=== PATIENT | female | born 1985 | race Caucasian/White ===

== ENCOUNTER 2017-02-21 18:06 | Emergency (ER) | payer OTHER ==
--- NOTE | 2017-02-21 20:42 | ED Physician Documentation ---
PD HPI HEENT - Stated complaint Stated Complaint: BUMP IN NOSE - Chief complaint Chief Complaint: Heent - History obtained from History obtained from: Patient, Family - History of Present Illness Timing - onset: How many days ago (3) Timing - details: Gradual onset, Still present Location: Nose Associated symptoms: No: Fever, Congestion Similar symptoms before: Has not had sx before Recently seen: Not recently seen - Additional information Additional information: Patient is a 31 year old female with no significant past medical history who is presenting to the emergency department for pain and swelling on the inside of her nose. Patient states that it started on her right nare, but now patient states that it is on both sides. Patient states her father pulled out some of her nose hairs, thinking that it might help, but the pain has persisted. Patient denies any trauma or systemic symptoms. Review of Systems Constitutional: denies: Fever, Chills Eyes: reports: Reviewed and negative Ears: reports: Reviewed and negative Nose: denies: Rhinorrhea / runny nose, Congestion, Foreign Body Throat: denies: Sore throat Cardiac: reports: Reviewed and negative Respiratory: reports: Reviewed and negative GI: reports: Reviewed and negative : reports: Reviewed and negative Skin: reports: Lesions Musculoskeletal: reports: Reviewed and negative Neurologic: denies: Headache Immunocompromised: denies: Immunocompromised PD PAST MEDICAL HISTORY - Past Medical History Derm: Other Other Past Medical History: Hx of Hives QD r/t Skin condition. 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 HEENT: Tonsil/Adenoidectomy - Present Medications Home Medications: Ambulatory Orders Medication Instructions Recorded Confirmed No Known Home Medications [No 02/21/17 02/21/17 Known Home Medications] - Allergies Allergies/Adverse Reactions: Allergies Allergy/AdvReac Type Severity Reaction Status Date / Time morphine Allergy Unknown Verified 02/21/17 18:17 - Social History Does the pt smoke?: No Smoking Status: Never smoker Does the pt drink ETOH?: Yes Does the pt have substance abuse?: No - Immunizations Immunizations are current?: No Immunizations: TDAP current <10years PD ED PE NORMAL - Vitals Vital signs reviewed: Yes - General General: Alert and oriented X 3, Well developed/nourished - HEENT HEENT: Atraumatic, PERRL, Moist mucous membranes, Pharynx benign, Dentition benign - Neck Neck: Supple, no meningeal sign - Cardiac Cardiac: RRR, No murmur - Respiratory Respiratory: No respiratory distress - Abdomen Abdomen: Non distended - Derm Derm: Warm and dry - Extremities Extremities: No deformity - Neuro Neuro: Alert and oriented X 3, No motor deficit, No sensory deficit, Normal speech Eye Opening: Spontaneous Motor: Obeys Commands Verbal: Oriented GCS Score: 15 - Psych Psych: Normal mood PD ED PE EXPANDED - General General: Anxious - HEENT HEENT: Atraumatic, Other (mild tenderness, erythema and swelling of medial portion of right nare, no drainable fluid collection) Results - Vitals Vitals: Vital Signs - 24 hr 02/21/17 02/21/17 02/21/17 18:12 19:53 20:45 Temperature 36.5 C 36.4 C L Heart Rate 74 68 68 Respiratory 16 16 18 Rate Blood Pressure 121/84 H 119/80 143/81 H O2 Saturation 100 97 97 Oxygen O2 Source Room air PD MEDICAL DECISION MAKING - ED course Complexity details: reviewed old records, re-evaluated patient, considered differential, d/w patient, d/w family ED course: Patient was seen and examined at bedside. Patient was well appearing and in no acute distress. Patient required no diagnostics or testing and was given bacitracin. Patient required no further work up and was stable for discharge with outpatient follow up. Departure - Departure Disposition: 01 Home, Self Care Clinical Impression: Folliculitis Condition: Good Instructions: ED Folliculitis Follow-Up: primary,care provider [Other] - As Needed Comments: Your symptoms are being caused by a blocked follicle. You will need to apply warm compresses to the area at least 4 times a day. You should also apply topical antibiotic 4 times a day as well. You can take motrin or tylenol as needed for pain. You should follow up with your pmd as needed. You may return to the emergency department at any time for new, worsening or uncontrollable symptoms. Discharge Date/Time: 02/21/17 20:58
[2017-02-21 20:45] VITALS: BP 143/81
== END 2017-02-21 20:58 | disposition home or self-care (01) ==
LOC: ED 18:06
DX: L73.9 Follicular disorder, unspecified (principal); J34.89 Other specified disorders of nose and nasal sinuses
CPT/HCPCS: 99282; 99283

== ENCOUNTER 2017-03-22 12:44 | Outpatient (CLI) | payer OTHER ==
[2017-03-22 18:57] LABS: BASOPHILS # (AUTO) 0.1 10^3/uL (0.0-0.1); BASOPHILS % (AUTO) 0.7 %; EOSINOPHILS # (AUTO) 0.4 10^3/uL (0.0-0.7); EOSINOPHILS % (AUTO) 5.2 %; HCT - HEMATOCRIT 39.6 % (37.0-47.0); HGB - HEMOGLOBIN 12.6 g/dL (12.0-16.0); LYMPHOCYTES # (AUTO) 1.5 10^3/uL (1.5-3.5); LYMPHOCYTES % (AUTO) 21.1 %; MEAN CORPUSCULAR HEMOGLOBIN 27.6 pg (27.0-31.0); MEAN CORPUSCULAR HGB CONC 31.9 g/dL (32.0-36.0); MEAN CORPUSCULAR VOLUME 86.4 fL (81.0-99.0); MEAN PLATELET VOLUME 9.7 fL (7.9-10.8); MONOCYTES # (AUTO) 0.6 10^3/uL (0.0-1.0); MONOCYTES % (AUTO) 8.4 %; NEUTROPHILS # (AUTO) 4.7 10^3/uL (1.5-6.6); NEUTROPHILS % (AUTO) 64.6 %; NUCLEATED RED BLOOD CELLS AUTO 0.1 /100WBC; RED BLOOD COUNT 4.58 10^6/uL (4.20-5.40); RED CELL DISTRIBUTION WIDTH 15.4 % (12.0-15.0); UNCORRECTED WHITE BLOOD COUNT 7.2 x10^3/uL; WHITE BLOOD COUNT 7.2 x10^3/uL (4.8-10.8)
[2017-03-22 19:25] LABS: ALBUMIN/GLOBULIN RATIO 1.2 (1.0-2.2); BILIRUBIN,TOTAL 0.5 mg/dL (0.2-1.0); BUN - BLOOD UREA NITROGEN 13 mg/dL (6-20); CARBON DIOXIDE - CO2 26 mmol/L (21-32); CHLORIDE 105 mmol/L (101-111); CREATININE 0.8 mg/dL (0.4-1.0); GFR - MDRD 85 (>89); GLUCOSE 91 mg/dL (70-100); HEMOGLOBIN A1C 0.45 g/dL; IRON 51 ug/dL (28-170); POTASSIUM 4.1 mmol/L (3.5-5.0); SODIUM 138 mmol/L (135-145); TOTAL IRON BINDING CAPACITY 367 ug/dL (250-450); TOTAL PROTEIN 7.4 g/dL (6.7-8.2); TRANSFERRIN 262 mg/dL (192-382)
== END 2017-03-22 12:45 | disposition home or self-care (01) ==
LOC: LAB.F 12:44
PROVIDERS: ATTEND Nurse Practitioner Family
DX: O24.419 Gestational diabetes mellitus in pregnancy, unspecified control (principal); R53.83 Other fatigue; Z86.2 Personal history of diseases of the blood and blood-forming organs and certain disorders involving the immune mechanism
CPT/HCPCS: 36415; 80050; 83036; 83540; 84466

== ENCOUNTER 2017-07-31 01:39 | Emergency (ER) | payer OTHER, MEDICAID ==
[2017-07-31 01:59] LABS: BILIRUBIN,URINE NEGATIVE (NEGATIVE); GLUCOSE, URINE (UA) NEGATIVE (NEGATIVE); KETONES,URINE (UA) NEGATIVE (NEGATIVE); LEUKOCYTE ESTERASE, URINE NEGATIVE (NEGATIVE); NITRITE,URINE NEGATIVE (NEGATIVE); OCCULT BLOOD,URINE LARGE (NEGATIVE); PH,URINE 5.5 PH (5.0-7.5); PROTEIN,URINE TRACE mg/dL (NEGATIVE); UROBILINOGEN,URINE 0.2 (NORMAL) E.U./dL (NORMAL)
[2017-07-31 02:01] LABS: CLARITY,URINE CLEAR (CLEAR); HCG UR QUAL NEGATIVE
[2017-07-31 02:09] LABS: BACTERIA,URINE Few /HPF (None Seen); MUCUS,URINE Marked Strands; SQUAMOUS EPITHELIAL CELL,UR MANY Squamous (<= Few)
[2017-07-31 02:10] LABS: BASOPHILS # (AUTO) 0.1 10^3/uL (0.0-0.1); BASOPHILS % (AUTO) 0.5 %; EOSINOPHILS # (AUTO) 0.7 10^3/uL (0.0-0.7); EOSINOPHILS % (AUTO) 5.1 %; HGB - HEMOGLOBIN 12.3 g/dL (12.0-16.0); LYMPHOCYTES # (AUTO) 1.5 10^3/uL (1.5-3.5); LYMPHOCYTES % (AUTO) 11.1 %; MEAN CORPUSCULAR HEMOGLOBIN 27.9 pg (27.0-31.0); MEAN CORPUSCULAR HGB CONC 32.4 g/dL (32.0-36.0); MEAN PLATELET VOLUME 8.5 fL (7.9-10.8); MONOCYTES # (AUTO) 1.3 10^3/uL (0.0-1.0); MONOCYTES % (AUTO) 9.4 %; NEUTROPHILS # (AUTO) 10.1 10^3/uL (1.5-6.6); NEUTROPHILS % (AUTO) 73.9 %; PLT - PLATELET COUNT 286 10^3/uL (130-450); RED BLOOD COUNT 4.43 10^6/uL (4.20-5.40); RED CELL DISTRIBUTION WIDTH 14.6 % (12.0-15.0); WHITE BLOOD COUNT 13.7 x10^3/uL (4.8-10.8)
[2017-07-31 02:17] LABS: ALBUMIN 3.8 g/dL (3.2-5.5); ALBUMIN/GLOBULIN RATIO 1.1 (1.0-2.2); BILIRUBIN,TOTAL 0.3 mg/dL (0.2-1.0); CALCIUM 8.6 mg/dL (8.5-10.3); CREATININE 0.9 mg/dL (0.4-1.0); TOTAL PROTEIN 7.2 g/dL (6.7-8.2)
--- NOTE | 2017-07-31 02:40 | ED Physician Documentation ---
History of Present Illness - Stated complaint Stated Complaint: VOMITING - Chief complaint Chief Complaint: Abd Pain - History obtained from History obtained from: Patient - History of Present Illness Timing: Today (see below) Improved by: no ameliorating factors Worsened by: no exacerbating factors - Additonal information Additional information: c/o generalized body aches since this morning, developed nausea and vomiting tonight 7:30 PM Review of Systems Constitutional: reports: Myalgias. denies: Fever, Chills, Sweats Cardiac: reports: Reviewed and negative Respiratory: reports: Reviewed and negative GI: reports: Nausea, Vomiting. denies: Abdominal Pain, Constipation : denies: Dysuria, Frequency Neurologic: reports: Headache (mild, generalized). 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 HEENT: Tonsil/Adenoidectomy - Present Medications Home Medications: Ambulatory Orders Medication Instructions Recorded Confirmed Ondansetron Odt [Zofran] 4 mg TL Q6H PRN #14 tablet 07/31/17 - Allergies Allergies/Adverse Reactions: Allergies Allergy/AdvReac Type Severity Reaction Status Date / Time morphine Allergy Unknown Verified 07/31/17 01:46 - Social History Does the pt smoke?: No Smoking Status: Never smoker Does the pt drink ETOH?: Yes Does the pt have substance abuse?: No - Immunizations Immunizations are current?: No Immunizations: TDAP current <10years PD ED PE NORMAL - Vitals Vital signs reviewed: Yes - General General: Alert and oriented X 3, No acute distress, Well developed/nourished - HEENT HEENT: Other (tacky/pasty mucous membranes) - Neck Neck: Supple, no meningeal sign - Cardiac Cardiac: RRR, No murmur - Respiratory Respiratory: No respiratory distress, Clear bilaterally - Abdomen Abdomen: Soft, Non tender, Non distended - Back Back: No CVA TTP - Derm Derm: Normal color, Warm and dry Results - Vitals Vitals: Vital Signs - 24 hr 07/31/17 04:11 Heart Rate 70 Respiratory 16 Rate Blood Pressure 128/70 O2 Saturation 95 Oxygen O2 Source Room air - Labs Labs: Laboratory Tests 07/31/17 07/31/17 07/31/17 01:52 01:56 01:56 WBC 13.7 H RBC 4.43 Hgb 12.3 Hct 38.1 MCV 86.0 MCH 27.9 MCHC 32.4 RDW 14.6 Plt Count 286 MPV 8.5 Neut # 10.1 H Lymph # 1.5 Barnes # 1.3 H Eos # 0.7 Baso # 0.1 Absolute Nucleated RBC 0.01 Nucleated RBC % 0.0 Sodium 136 Potassium 3.6 Chloride 102 Carbon Dioxide 25 Anion Gap 9.0 BUN 19 Creatinine 0.9 Estimated GFR (MDRD) 74 L Glucose 118 H Calcium 8.6 Total Bilirubin 0.3 AST 26 ALT 33 Alkaline Phosphatase 55 Total Protein 7.2 Albumin 3.8 Globulin 3.4 Albumin/Globulin Ratio 1.1 Lipase 21 L Urine Color YELLOW Urine Clarity CLEAR Urine pH 5.5 Ur Specific [place] >=1.030 H Urine Protein TRACE Urine Glucose (UA) NEGATIVE Urine Ketones NEGATIVE Urine Occult Blood LARGE H Urine Nitrite NEGATIVE Urine Bilirubin NEGATIVE Urine Urobilinogen 0.2 (NORMAL) Ur Leukocyte Esterase NEGATIVE Urine RBC 6-10 H Urine WBC 4-5 Ur Squamous Epith Cells MANY Squamous H Urine Bacteria Few Urine Mucus Marked Strands Ur Microscopic Review INDICATED Urine Culture Comments NOT INDICATED Urine HCG, Qual NEGATIVE PD MEDICAL DECISION MAKING - ED course Complexity details: reviewed results, re-evaluated patient (On reevaluation, after tests resulted and IV fluids/zofran/toradol, patient has moist mucous membranes, reports feeling significant improvement in symptoms and comfortable with d/c home), considered differential, d/w patient Departure - Departure Disposition: Home, Self Care Clinical Impression: Vomiting Qualifiers: Vomiting type: unspecified Vomiting Intractability: non-intractable Nausea presence: with nausea Qualified Code(s): R11.2 - Nausea with vomiting, unspecified Hematuria Qualifiers: Hematuria type: unspecified type Qualified Code(s): R31.9 - Hematuria, unspecified Condition: Good Instructions: ED Gastritis, ED Hematuria, ED Nausea Vomiting Follow-Up: Anna Puckett ARNP [Primary Care Provider] - (3-4 days if symptoms have not resolved) Prescriptions: Ondansetron Odt [Zofran] 4 mg TL Q6H PRN #14 tablet PRN Reason: Nausea / Vomiting Discharge Date/Time: 07/31/17 04:11
[2017-07-31] MEDS ORDERED: SODIUM CHLORIDE 0.9% 1,000 ML IV STA (02:58)
[2017-07-31] MEDS ORDERED: ONDANSETRON 4 MG/2 ML VIAL IVP STA (02:58)
[2017-07-31] MEDS ORDERED: KETOROLAC 60 MG/2 ML VIAL IVP STA (03:12)
[2017-07-31] MEDS ORDERED: ONDANSETRON ODT 4 MG TABLET TL STA (04:03)
[2017-07-31 04:12] VITALS: BP 128/70
== END 2017-07-31 04:11 | disposition home or self-care (01) ==
LOC: ED 01:39
DX: R11.2 Nausea with vomiting, unspecified (principal); R31.9 Hematuria, unspecified
CPT/HCPCS: 36415; 80053; 81001; 81025; 83690; 85025; 96374; 96375; 99283; 99284; Q0162; 81003; 87086

== ENCOUNTER 2017-11-30 16:58 | Outpatient (CLI) | payer MEDICAID ==
--- NOTE | 2017-12-01 08:46 | Ultrasound Report ---
Procedure Date: 11/30/2017 Accession Number: [id number] / [id number] Procedure: US - Pelvic w/Transvaginal CPT Code: FULL RESULT: EXAM: PELVIC ULTRASOUND EXAM DATE: 11/30/2017 05:51 PM. CLINICAL HISTORY: IRREGULAR Menstruation, unspecified. History of x 3. LMP 10/31/2017. COMPARISON: None. TECHNIQUE: Realtime transabdominal pelvic scan performed to identify the uterus and adnexa and as an overview of other pelvic structures, followed by transvaginal scan to provide greater detail of the uterus and adnexa, with static image documentation. FINDINGS: Uterus: 8.9 x 4.8 x 5.4 cm, volume 121 cc. Anteverted position. Findings consistent with prior section. Masses: None. Endometrium: 8.7 mm. Normal. Cervix: Unremarkable. Right Ovary: 3.2 x 2.0 x 3.6 cm, volume 12 cc. Normal echotexture and blood flow. Dominant simple follicle measuring 1.6 x 1.2 x 1.7 cm. Left Ovary: 2.9 x 1.7 x 2.0 cm, volume 5.2 cc. Normal echotexture and blood flow. Free Fluid: None. Other: None. IMPRESSION: Negative pelvic ultrasound. RADIA
== END 2017-11-30 16:59 | disposition home or self-care (01) ==
LOC: DI 16:58
PROVIDERS: ATTEND Obstetrics & Gynecology
DX: N92.6 Irregular menstruation, unspecified (principal)
CPT/HCPCS: 76830; 76856

== ENCOUNTER 2018-01-02 13:32 | Outpatient (CLI) | payer MEDICAID ==
[2018-01-02 19:00] LABS: BASOPHILS # (AUTO) 0.1 10^3/uL (0.0-0.1); BASOPHILS % (AUTO) 0.9 %; EOSINOPHILS # (AUTO) 0.7 10^3/uL (0.0-0.7); HGB - HEMOGLOBIN 12.8 g/dL (12.0-16.0); LYMPHOCYTES # (AUTO) 1.5 10^3/uL (1.5-3.5); LYMPHOCYTES % (AUTO) 22.9 %; MEAN CORPUSCULAR HEMOGLOBIN 29.3 pg (27.0-31.0); MEAN CORPUSCULAR HGB CONC 33.5 g/dL (32.0-36.0); MEAN CORPUSCULAR VOLUME 87.4 fL (81.0-99.0); MEAN PLATELET VOLUME 9.2 fL (7.9-10.8); MONOCYTES # (AUTO) 0.6 10^3/uL (0.0-1.0); MONOCYTES % (AUTO) 8.6 %; NEUTROPHILS # (AUTO) 3.8 10^3/uL (1.5-6.6); NEUTROPHILS % (AUTO) 57.6 %; PLT - PLATELET COUNT 253 10^3/uL (130-450); RED BLOOD COUNT 4.35 10^6/uL (4.20-5.40); RED CELL DISTRIBUTION WIDTH 14.3 % (12.0-15.0); WHITE BLOOD COUNT 6.5 x10^3/uL (4.8-10.8)
== END 2018-01-02 13:33 | disposition home or self-care (01) ==
LOC: LAB.N 13:32
PROVIDERS: ATTEND Obstetrics & Gynecology
DX: N92.0 Excessive and frequent menstruation with regular cycle (principal)
CPT/HCPCS: 36415; 85025

== ENCOUNTER 2018-01-23 10:41 | Outpatient (CLI) | payer MEDICAID ==
[2018-01-23 11:10] LABS: BASOPHILS # (AUTO) 0.1 10^3/uL (0.0-0.1); BASOPHILS % (AUTO) 0.8 %; EOSINOPHILS # (AUTO) 0.6 10^3/uL (0.0-0.7); EOSINOPHILS % (AUTO) 7.4 %; HGB - HEMOGLOBIN 13.9 g/dL (12.0-16.0); LYMPHOCYTES # (AUTO) 1.5 10^3/uL (1.5-3.5); LYMPHOCYTES % (AUTO) 18.8 %; MEAN CORPUSCULAR HGB CONC 33.4 g/dL (32.0-36.0); MEAN CORPUSCULAR VOLUME 86.8 fL (81.0-99.0); MEAN PLATELET VOLUME 9.1 fL (7.9-10.8); MONOCYTES # (AUTO) 0.8 10^3/uL (0.0-1.0); MONOCYTES % (AUTO) 10.2 %; NEUTROPHILS # (AUTO) 5.1 10^3/uL (1.5-6.6); NEUTROPHILS % (AUTO) 62.8 %; PLT - PLATELET COUNT 245 10^3/uL (130-450); RED BLOOD COUNT 4.79 10^6/uL (4.20-5.40); RED CELL DISTRIBUTION WIDTH 14.2 % (12.0-15.0); WHITE BLOOD COUNT 8.2 x10^3/uL (4.8-10.8)
[2018-01-23 11:23] LABS: HCG UR QUAL NEGATIVE
== END 2018-01-23 10:42 | disposition home or self-care (01) ==
LOC: LAB 10:41
PROVIDERS: ATTEND Obstetrics & Gynecology
DX: N92.0 Excessive and frequent menstruation with regular cycle (principal)
CPT/HCPCS: 36415; 81025; 85025; 86850; 86900; 86901

== ENCOUNTER 2018-01-24 06:07 | Day surgery (SDC) | payer MEDICAID ==
--- NOTE | 2018-01-23 11:30 | PREOP HISTORY & PHYSICAL ---
DATE OF SERVICE: 01/23/2018 Physician: Harley Perez MD ANTICIPATED DATE OF PROCEDURE: 01/24/2018 HISTORY OF PRESENT ILLNESS: The patient is a 32-year-old, G4, P3, female who presents with menorrhagia. She states that she has had difficulty with heavy bleeding. She will need to change a pad or a tampon every 2 hours. This has been significant enough to cause her to be anemic. She states her periods run greater than 5-7 days. Cycles run about 21 days between cycles. She denies any pain with her periods at this particular time. She has had a tubal ligation for sterilization. She currently would like to have an endometrial ablation for menstrual flow control. PAST MEDICAL HISTORY: Positive for anxiety. PAST SURGICAL HISTORY: section x3. ALLERGIES: NONE KNOWN. CURRENT MEDICATION: Escitalopram 10 mg. HABITS: The patient denies use of tobacco, drinks alcohol only occasionally, denies use of street or addictive drugs or tetrahydrocannabinol. SOCIAL HISTORY: The patient is in a stable monogamous relationship with a significant other. She lives with her children, as well as partner. 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 FAMILY HISTORY: Positive for Assonet's chorea. She denies any history of ovarian, cervical, or breast cancer. REVIEW OF SYSTEMS: Negative for cardiac, GI, pulmonary, musculoskeletal, as well as neurologic. PHYSICAL EXAMINATION HEENT: Pupils equal and round. Extraocular muscles intact. Thyroid is not palpably enlarged. CARDIOVASCULAR: Regular rate and rhythm without murmurs. LUNGS: [place] are clear without rales or wheezes. BACK: No spinal or CVA tenderness. ABDOMEN: Shows evidence of previous Pfannenstiel incision from her sections. The abdomen is soft and nontender. PELVIC: Previously was unrewarding, secondary to abdominal wall thickness; however, there is no cervical motion or adnexal tenderness. IMPRESSION: While she has had an ultrasound, which shows an 8-mm thickness of the uterus, there is no evidence of fibroids or polyps at this time. The adnexa are normal. Her TSH is noted to be within normal limits. IMPRESSION: A 32-year-old G4, P3, AB1 female with menorrhagia. PLAN: We will perform endometrial ablation. Risks and benefits were explained to the patient, including those, but not limited to bleeding, infection, injury to the pelvic organs, which include the uterus, tubes, ovaries, bowel, or bladder. She is aware of the potential for DVT with PE, as well as postop adhesions, which can cause pain or bowel obstruction. She is aware of possible failure and may need to pursue Hysterectomy at a later date. She has been given prescriptions for Motrin, oxycodone, and Colace. TD: 01/23/2018 10:37 MTDD
[2018-01-24] MEDS ORDERED: LACTATED RINGERS 1,000 ML IV ONE ×2 (06:31→09:23)
[2018-01-24] MEDS ORDERED: ceFAZolin 2 GM/50 ML 2 GM/50 ML BAG IV ONE ×2 (06:53→08:08)
--- NOTE | 2018-01-24 06:57 | ANESTHESIA ---
Pre-Anesthesia VS, & Labs - Diagnosis Menorrhagia - Procedure Endometrial Ablation Novasure Vital Signs: Temp Pulse Resp BP Pulse Ox 36.2 C L 68 16 132/73 H 98 01/24/18 06:42 01/24/18 06:42 01/24/18 06:42 01/24/18 06:42 01/24/18 06:42 Height 5 ft 6 in Weight (kg) 111 kg Body Mass Index 37.1 - NPO >8 hours - Is Patient ?: No - Lab Results Lab results reviewed: Yes Home Medications and Allergies Home Medications: Ambulatory Orders Escitalopram [Lexapro] 10 mg PO DAILY 01/24/18 Allergies/Adverse Reactions: Allergies Allergy/AdvReac Type Severity Reaction Status Date / Time morphine AdvReac Emesis Verified 01/23/18 11:13 Anes History & Medical History - Anesthetic History Anesthesia Complications: reports: Post-Operative Nausea/Vomiting - Medical History Cardiovascular: reports: None Pulmonary: reports: None Gastrointestinal: reports: None Urinary: reports: None Musculoskeletal: reports: None Endocrine/Autoimmune: reports: None Skin: reports: None Smoking Status: Never smoker - Surgical History Eyes Ears Nose Throat (EENT): Tonsil/Adenoidectomy Gynecologic: section Exam General: Alert, Oriented x3, Cooperative Dental: WNL Mouth Openin Fingerbreadth Neck Mobility: Normal Mallampati classification: II Thyromental Distance: 4-6 cm Respiratory: Lungs clear Cardiovascular: Regular rate Neurological: Normal speech Mental/Cognitive Status: Alert/Oriented X3 Plan Anesthesia Type: General Consent for Procedure(s) Verified and Reviewed: Yes Code Status: Attempt Resuscitation ASA classification: 2-Mild systemic disease Is this case an emergency?: No
[2018-01-24] MEDS ORDERED: SCOPOLAMINE PATCH TOP ONE (07:05)
[2018-01-24] MEDS ORDERED: LIDOCAINE 1% 50 ML MDV ONE (07:17)
[2018-01-24] MEDS ORDERED: ONDANSETRON 4 MG/2 ML VIAL IVP ONE (08:08)
[2018-01-24] MEDS ORDERED: KETOROLAC 30 MG/ML VIAL IVP ONE (08:08)
[2018-01-24] MEDS ORDERED: PROPOFOL 200 MG/20 ML VIAL IVP ONE (08:08)
[2018-01-24] MEDS ORDERED: ACETAMINOPHEN 1,000 MG/100 ML 100 ML IV ONE (08:08)
[2018-01-24] MEDS ORDERED: LIDOCAINE-MPF 2% 5 ML VIAL IM ONE (08:08)
[2018-01-24] MEDS ORDERED: oxyCODONE 5 MG TABLET PO PRN (08:40)
[2018-01-24] MEDS ORDERED: LORazepam 2 MG/ML VIAL IVP PRN (08:40)
[2018-01-24] MEDS ORDERED: ONDANSETRON 4 MG/2 ML VIAL IVP PRN (08:40)
[2018-01-24] MEDS ORDERED: HYDROmorphone 0.5 MG/0.5 ML SYRINGE IVP PRN (08:40)
--- NOTE | 2018-01-24 08:56 | OPERATIVE REPORT ---
Operative Report - General Procedure Date: 01/24/18 Planned Procedure: Endometrial Ablation Pre-Op Diagnosis: Menorrhgia Procedure Performed: Endothelial Ablation Post Op Diagnosis: Same - Procedure Note Primary Surgeon: Harley Perez MD Anesthesia Provider: Markus Dobson mD Anesthesia Technique: General LMA IV Fluids (mL): 600 Estimated Blood Loss (mL): 25 Complications: None
[2018-01-24] MEDS: fentaNYL 100 MCG/2 ML VIAL ONE ×2 (08:58→09:15)
[2018-01-24] MEDS ORDERED: ONDANSETRON 4 MG/2 ML VIAL ONE (09:21)
[2018-01-24] MEDS ORDERED: HYDROmorphone 1 MG/ML CARPUJECT ONE (09:35)
[2018-01-24 10:27] VITALS: BP 136/80
--- NOTE | 2018-01-24 10:30 | OPERATIVE REPORT ---
DATE OF SERVICE: 01/24/2018 Physician: Harley Perez MD PREOPERATIVE DIAGNOSIS: Menorrhagia. POSTOPERATIVE DIAGNOSIS: Menorrhagia. PROCEDURE PERFORMED: Endometrial ablation with the NovaSure. SURGEON: Harley Perez MD. ANESTHESIA: General via LMA, with Dr. Markus Santos. ESTIMATED BLOOD LOSS: 25 mL FINDINGS: Uterus sounded to 9 cm. The internal os was noted to be roughly 4 cm in. DESCRIPTION OF PROCEDURE: Following adequate anesthesia utilizing LMA, patient was placed in the peri adriana lithotomy position in [facility]. Pelvic examination under anesthesia was performed, at [facility] time the uterus was determined to be anteverted. At this point, she was prepped and draped in the usual fashion. A timeout was performed in which the patient was identified as well as concerns discu ssed. Speculum was placed into the vagina. The cervix was visualized. The cervix was grasped poste riorly utilizing a single-tooth tenaculum. There was some difficulty traversing the external os of t he cervix as she had never had any children vaginally. A small uterine sound was used to dilate the cervix and then a 2 mm was placed and then a uterine sound was placed and the uterus sounded to 9 cm. The cervix was progressively dilated up to size 6 mm. The internal os was located utilizing the so und and determined to be roughly 4 cm in length. The NovaSure was then set to 5 cm. It was then ins erted into the uterus. It was moved back and forth to assure good seating. The width was noted to b e 4.2 cm. At this time, the cavity integrity was checked and noted to be secure. Then, the cycle wa s initiated, 116 torres was applied for 121 seconds. At this point, the NovaSure was collapsed and wi thdrawn. There was bleeding from the tenaculum sites, which responded to direct pressure. The patie nt tolerated the procedure well and was taken to recovery in stable condition. TD: 01/24/2018 09:07
[2018-01-24] MEDS ORDERED: oxyCODONE 5 MG TABLET ONE (10:36)
== END 2018-01-24 06:08 | disposition home or self-care (01) ==
LOC: SDS 06:07
PROVIDERS: ATTEND Obstetrics & Gynecology
PROC: 0U5 Female Reproductive System, Destruction (ICD-10-PCS; principal; 2018-01-24 07:30)
DX: N92.0 Excessive and frequent menstruation with regular cycle (principal); F41.9 Anxiety disorder, unspecified
CPT/HCPCS: 58353; A9270; J0131; J0690; J1170; J3490; J7120

== ENCOUNTER 2018-01-29 13:09 | Outpatient (CLI) | payer MEDICAID ==
[2018-01-29 18:29] LABS: BASOPHILS # (AUTO) 0.1 10^3/uL (0.0-0.1); BASOPHILS % (AUTO) 0.9 %; EOSINOPHILS # (AUTO) 0.7 10^3/uL (0.0-0.7); EOSINOPHILS % (AUTO) 9.1 %; HGB - HEMOGLOBIN 13.3 g/dL (12.0-16.0); LYMPHOCYTES # (AUTO) 1.5 10^3/uL (1.5-3.5); LYMPHOCYTES % (AUTO) 19.2 %; MEAN CORPUSCULAR HEMOGLOBIN 28.8 pg (27.0-31.0); MEAN CORPUSCULAR HGB CONC 32.8 g/dL (32.0-36.0); MEAN CORPUSCULAR VOLUME 87.9 fL (81.0-99.0); MEAN PLATELET VOLUME 9.4 fL (7.9-10.8); MONOCYTES # (AUTO) 0.6 10^3/uL (0.0-1.0); MONOCYTES % (AUTO) 8.4 %; NEUTROPHILS # (AUTO) 4.8 10^3/uL (1.5-6.6); NEUTROPHILS % (AUTO) 62.4 %; PLT - PLATELET COUNT 303 10^3/uL (130-450); RED BLOOD COUNT 4.63 10^6/uL (4.20-5.40); RED CELL DISTRIBUTION WIDTH 14.3 % (12.0-15.0); WHITE BLOOD COUNT 7.6 x10^3/uL (4.8-10.8)
== END 2018-01-29 13:10 | disposition home or self-care (01) ==
LOC: LAB.N 13:09
PROVIDERS: ATTEND Obstetrics & Gynecology
DX: Z13.0 Encounter for screening for diseases of the blood and blood-forming organs and certain disorders involving the immune mechanism (principal)
CPT/HCPCS: 36415; 85025

== ENCOUNTER 2018-03-26 15:52 | Day surgery (SDC) | payer MEDICAID ==
[2018-03-26 16:15] LABS: BILIRUBIN,URINE NEGATIVE (NEGATIVE); GLUCOSE, URINE (UA) NEGATIVE (NEGATIVE); KETONES,URINE (UA) NEGATIVE (NEGATIVE); LEUKOCYTE ESTERASE, URINE NEGATIVE (NEGATIVE); NITRITE,URINE NEGATIVE (NEGATIVE); OCCULT BLOOD,URINE LARGE (NEGATIVE); PH,URINE 5.5 PH (5.0-7.5); PROTEIN,URINE NEGATIVE (NEGATIVE); UROBILINOGEN,URINE 0.2 (NORMAL) E.U./dL (NORMAL)
[2018-03-26 16:19] LABS: CLARITY,URINE HAZY (CLEAR)
[2018-03-26 16:20] LABS: HCG UR QUAL NEGATIVE
[2018-03-26] MEDS: ONDANSETRON ODT 4 MG TABLET TL STA ×2 (16:25→23:10)
[2018-03-26 16:32] LABS: BACTERIA,URINE Many /HPF (None Seen); SQUAMOUS EPITHELIAL CELL,UR MANY Squamous (<= Few)
[2018-03-26 16:56] LABS: BASOPHILS # (AUTO) 0.1 10^3/uL (0.0-0.1); BASOPHILS % (AUTO) 0.9 %; EOSINOPHILS # (AUTO) 0.4 10^3/uL (0.0-0.7); EOSINOPHILS % (AUTO) 5.2 %; HGB - HEMOGLOBIN 13.2 g/dL (12.0-16.0); LYMPHOCYTES # (AUTO) 1.4 10^3/uL (1.5-3.5); LYMPHOCYTES % (AUTO) 17.3 %; MEAN CORPUSCULAR HEMOGLOBIN 28.3 pg (27.0-31.0); MEAN CORPUSCULAR HGB CONC 32.5 g/dL (32.0-36.0); MEAN CORPUSCULAR VOLUME 87.2 fL (81.0-99.0); MONOCYTES # (AUTO) 0.6 10^3/uL (0.0-1.0); MONOCYTES % (AUTO) 7.6 %; NEUTROPHILS # (AUTO) 5.8 10^3/uL (1.5-6.6); PLT - PLATELET COUNT 207 10^3/uL (130-450); RED BLOOD COUNT 4.66 10^6/uL (4.20-5.40); RED CELL DISTRIBUTION WIDTH 14.8 % (12.0-15.0); WHITE BLOOD COUNT 8.4 x10^3/uL (4.8-10.8)
[2018-03-26 17:14] LABS: ALBUMIN/GLOBULIN RATIO 1.1 (1.0-2.2); BILIRUBIN,TOTAL 0.5 mg/dL (0.2-1.0); CALCIUM 8.5 mg/dL (8.5-10.3); CREATININE 0.9 mg/dL (0.4-1.0); TOTAL PROTEIN 7.8 g/dL (6.7-8.2)
--- NOTE | 2018-03-26 18:12 | ED Physician Documentation ---
PD HPI ABD PAIN - Stated complaint Stated Complaint: AB PX - Chief complaint Chief Complaint: Abd Pain - History obtained from History obtained from: Patient - History of Present Illness Timing - onset: Today Timing - duration: Hours Timing - details: Abrupt onset, Still present Quality: Aching, Sharp, Pain Location: Periumbilical, RLQ Radiation: No: Chest, Lower back, Right flank Improved by: Laying still, Position (lying left side) Worsened by: Moving, Palpation. No: Breathing Associated symptoms: Nausea. No: Fever, Vomiting, Diarrhea, Constipation, Dysuria, Hematuria, Vaginal bleeding Similar symptoms before: Has not had sx before Recently seen: Surgery (transvaginal endometrial ablation in January, done here. No problems from that.) Review of Systems Constitutional: denies: Fever, Chills Nose: denies: Rhinorrhea / runny nose, Congestion Throat: denies: Sore throat Cardiac: denies: Chest pain / pressure, Palpitations Respiratory: denies: Dyspnea, Cough GI: reports: Abdominal Pain, Nausea. denies: Abdominal Swelling, Constipation, Diarrhea : reports: LMP (1 month ago). 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 HEENT: Tonsil/Adenoidectomy - Present Medications Home Medications: Ambulatory Orders Medication Instructions Recorded Confirmed Escitalopram [Lexapro] 10 mg PO DAILY 01/24/18 01/24/18 - Allergies Allergies/Adverse Reactions: Allergies Allergy/AdvReac Type Severity Reaction Status Date / Time morphine AdvReac Emesis Verified 03/26/18 15:56 - Social History Does the pt smoke?: Yes Smoking Status: Current every day smoker Does the pt drink ETOH?: Yes Does the pt have substance abuse?: No - Immunizations Immunizations are current?: No Immunizations: TDAP current <10years - POLST Patient has POLST: No PD ED PE NORMAL - Vitals Vital signs reviewed: Yes - General General: Well developed/nourished - HEENT HEENT: Pharynx benign - Neck Neck: Supple, no meningeal sign, No adenopathy - Cardiac Cardiac: RRR, No murmur - Respiratory Respiratory: Clear bilaterally - Abdomen Abdomen: Soft, Non distended, No organomegaly, Other (She has tender markedly with guarding and percussion tenderness in the periumbilical to right lower quadrant area. There is some referred tenderness from the left lower quadrant to the right. The upper upper abdomen is nontender. There is no CVA tenderness.). No: Normal bowel sounds (decreased) - Female Female : Deferred - Rectal Rectal: Deferred - Back Back: No CVA TTP - Derm Derm: Normal color, Warm and dry - Extremities Extremities: No tenderness to palpate - Neuro Neuro: Alert and oriented X 3, No motor deficit, Normal speech Eye Opening: Spontaneous Motor: Obeys Commands Verbal: Oriented GCS Score: 15 Results - Vitals Vitals: Vital Signs - 24 hr 03/26/18 03/26/18 03/26/18 15:54 18:45 22:00 Temperature 36.5 C 36.6 C Heart Rate 75 60 68 Respiratory 16 18 18 Rate Blood Pressure 118/81 H 109/63 118/71 O2 Saturation 99 100 98 Oxygen O2 Source Room air - Labs Labs: Laboratory Tests 03/26/18 03/26/18 03/26/18 16:10 16:45 16:45 WBC 8.4 RBC 4.66 Hgb 13.2 Hct 40.6 MCV 87.2 MCH 28.3 MCHC 32.5 RDW 14.8 Plt Count 207 MPV 9.0 Neut # (Auto) 5.8 Lymph # (Auto) 1.4 L [place] # (Auto) 0.6 Eos # (Auto) 0.4 Baso # (Auto) 0.1 Absolute Nucleated RBC 0.00 Nucleated RBC % 0.0 Sodium 135 Potassium 3.6 Chloride 102 Carbon Dioxide 26 Anion Gap 7.0 BUN 15 Creatinine 0.9 Estimated GFR (MDRD) 74 L Glucose 95 Calcium 8.5 Total Bilirubin 0.5 AST 17 ALT 20 Alkaline Phosphatase 56 Total Protein 7.8 Albumin 4.0 Globulin 3.8 Albumin/Globulin Ratio 1.1 Lipase 28 Urine Color LT. YELLOW Urine Clarity HAZY Urine pH 5.5 Ur Specific [place] >=1.030 H Urine Protein NEGATIVE Urine Glucose (UA) NEGATIVE Urine Ketones NEGATIVE Urine Occult Blood LARGE H Urine Nitrite NEGATIVE Urine Bilirubin NEGATIVE Urine Urobilinogen 0.2 (NORMAL) Ur Leukocyte Esterase NEGATIVE Urine RBC 6-10 H Urine WBC 0-3 Ur Squamous Epith Cells MANY Squamous H Urine Bacteria Many H Ur Microscopic Review INDICATED Urine Culture Comments NOT INDICATED Urine HCG, Qual NEGATIVE - Rads (name of study) pelvic U/S Radiology: Prelim report reviewed (left ovarian cyst 2 cm without free fluid. Right normal. ), See rad report abd/pelvic CT Radiology: Prelim report reviewed (periappendiceal edema with inflammation particularly at tip, with tip measurement 11 mm. ), See rad report PD MEDICAL DECISION MAKING - ED course Complexity details: reviewed results, re-evaluated patient (more comfortable with IV fluids and medications. ), considered differential, d/w patient, d/w center consultant (Dr. Kiara Tripathi - to give abx and see if Hospitalist will see patient, for plan of surgery in the morning. ) Departure - Departure Disposition: ED Place in Observation Clinical Impression: Right lower quadrant abdominal pain Appendicitis Qualifiers: Appendicitis type: acute appendicitis Acute appendicitis type: with localized peritonitis Appendicitis gangrene presence: without gangrene Appendicitis perforation presence: without perforation Appendicitis abscess presence: without abscess Qualified Code(s): K35.30 - Acute appendicitis with localized peritonitis, without perforation or gangrene Condition: Stable Record reviewed to determine appropriate education?: Yes
[2018-03-26] MEDS ORDERED: HYDROmorphone 1 MG/ML CARPUJECT IVP STA ×2 (18:42→21:17)
[2018-03-26] MEDS ORDERED: SODIUM CHLORIDE 0.9% 1,000 ML IV ONE (18:42)
[2018-03-26] MEDS ORDERED: ONDANSETRON 4 MG/2 ML VIAL IVP STA (18:42)
[2018-03-26] MEDS ORDERED: KETOROLAC 15 MG/ML VIAL IVP STA (18:43)
--- NOTE | 2018-03-26 20:23 | Ultrasound Report ---
Reason: pelvic pain Procedure Date: 03/26/2018 Accession Number: [id number] / [id number] Procedure: US - Pelvic w/Transvag+Doppler Ltd CPT Code: FULL RESULT: EXAM: PELVIC ULTRASOUND EXAM DATE: 03/26/2018 07:26 PM. CLINICAL HISTORY: Pelvic pain. COMPARISON: PELVIC W/TRANSVAGINAL 11/30/2017 5:17 PM. TECHNIQUE: Realtime transabdominal pelvic scan performed to identify the uterus and adnexa and as an overview of other pelvic structures, followed by transvaginal scan to provide greater detail of the uterus and adnexa, with static image documentation. FINDINGS: Uterus: 8.5 x 4.3 x 5 cm, volume 96.1 cc. Anteverted position. Normal overall size and echotexture. Masses: None. Endometrium: 8 mm. No endometrial mass or polyp. Cervix: Unremarkable. Right Ovary: 3 x 2.3 x 3.2 cm, volume 11.1 cc. Normal echotexture and blood flow. Left Ovary: 3.3 x 3.2 x 3 cm, volume 17 cc. Normal echotexture and blood flow. Anechoic 2.2 x 2.4 x 1.7 cm left ovarian cyst. Free Fluid: Small volume ascites noted. Other: None. IMPRESSION: 1. 2.4 cm left ovarian cyst. Otherwise, both ovaries and adnexa are normal. 2. No uterine mass. 3. Normal endometrium. RADIA
[2018-03-26] MEDS ORDERED: IOVERSOL 320 100 ML VIAL IVP ONE ×2 (21:24→21:46)
--- NOTE | 2018-03-26 22:11 | CT Report ---
Reason: RLQ abd pain Procedure Date: 03/26/2018 Accession Number: [id number] / [id number] Procedure: CT - Abdomen/Pelvis W/ CPT Code: FULL RESULT: EXAM: CT ABDOMEN AND PELVIS EXAM DATE: 03/26/2018 09:45 PM. CLINICAL HISTORY: Right lower quadrant abdominal pain. History of endometrial ablation in January 2018. COMPARISONS: None. TECHNIQUE: Routine helical CT imaging was performed through the abdomen and pelvis. IV contrast: 100 mL Optiray-[id number]. Enteric contrast: No. Reconstructions: Coronal and sagittal. In accordance with CT protocol optimization, one or more of the following dose reduction techniques were utilized for this exam: automated exposure control, adjustment of mA and/or KV based on patient size, or use of iterative reconstructive technique. FINDINGS: ABDOMEN: Liver: No significant abnormality. Stomach/Distal Esophagus: No significant abnormality. Gallbladder: Multiple gallstones are present. Bile Ducts: No significant abnormality. Pancreas: No significant abnormality. Spleen: No significant abnormality. Kidneys: No suspicious solid appearing lesion. No hydronephrosis. Adrenals: No significant abnormality. Bowel: No obstruction. Average fecal residual. Appendix: Moderate inflammatory change is noted around the tip of the appendix within the right lower quadrant. The proximal appendix also demonstrates mild surrounding inflammatory change. This is best seen on the coronal images.The region of the appendiceal tip measures 13 mm (image 29 series 5). Lymph Nodes: No pathologically enlarged nodes. Vasculature: Normal caliber aorta. Fluid: No significant free fluid. Abdominal Wall: Small to medium sized fat-containing umbilical hernia. Other: No significant abnormality. PELVIS: Uterus and Ovaries: Collapsing cyst noted within the left ovary. Physiologic appearance of the ovaries effectively excluding torsion. Bladder: No significant abnormality. Lymph Nodes: No pathologically enlarged nodes. Fluid: There is a small amount of fluid layering within the pelvis. This may be reactive and physiologic. Other: None. BONES: No suspicious bony lesions. LOWER CHEST: No significant consolidation or effusion. There is bibasilar dependent atelectasis. IMPRESSION: 1. Periappendiceal inflammatory change, most pronounced around the appendiceal tip. As visualized appendiceal tip measures 12.8 mm. Findings are worrisome for appendicitis. Please correlate with clinical and laboratory values. 2. There is no periappendiceal drainable collection at this time. 3. Physiologic appearance of the ovaries, especially the right ovary, excluding torsion. Small collapsing left ovary cyst. 4. Multiple gallstones without evidence of cholecystitis or biliary dilation at this time. RADIA
[2018-03-26] MEDS ORDERED: PIPERACILLIN/TAZOBACTAM 3.375 GM in SODIUM CHLORIDE 0.9% MINIBAG 100 ML IV STA (22:49)
--- NOTE | 2018-03-27 00:53 | CONSULTATION NOTE ---
Referring Provider Name of Referring Provider:: Dr. Kelsey Consult Date: 03/27/18 Chief Complaint - Chief Complaint Chief Complaint: abd pain History of Present Illness - Admitted From Admitted From:: ER - History Obtained From Records Reviewed: yes History obtained from: pt, records Exam Limitations: none - History of Present Illness HPI Comment/Other: 32 yo female [id number] with a 10 hr hx of sudden onset of RLQ abdominal pain, crampy in nature, which has become constant, steady and associated with N/V x 1, no fever, chills, change in bowel habits, dysuria, wt changes, melena, BRBPR, hematemesis, others with similar sx, or previous similar sx. Pain is exacerbated with activity and relieved with lying still. No hematuria. Recent endometrial ablation in January 2018. LMP one month ago. Evaluation in the ER included an abd us showing a small left ovarian cyst and non vis appendix. CT abd/pelvis shows abnormally thickened appendix measuring up to 13 mm diameter, no evidence of perforation, multiple gallstones, small umbilical hernia. Pt notes in termittently tender umbilical bulge since prior 5 yrs ago. No hx fatty food intolerance. Neg FH appendicitis, + FH gallstones, neg FH CRC except an aunt with a colostomy for unknown reasons. History - Past Medical History Cardiovascular: reports: None Respiratory: reports: None Neuro: reports: None Endocrine/Autoimmune: reports: None GI: reports: None TIE PRESSER: reports: Endometriosis, Ovarian cysts, Miscarriage(s) : reports: None HEENT: reports: None Psych: reports: Anxiety, Other (insomnia) Musculoskeletal: reports: None Derm: reports: None MRSA Hx?: No - Past Surgical History /TIE PRESSER: reports: section (x3), Endometrial ablation (01/2018), Tubal ligation HEENT: reports: Tonsil/Adenoidectomy - Family & Social History Living arrangement: At home Living Situation: With family - Substance History Use: Uses substance without health or social issues: Tobacco, Alcohol (once a month) Tobacco Details: Cigarettes (one pack per month) - POLST Patient has POLST: No Meds/Allgy - Home Medications Home Medications: Ambulatory Orders Medication Instructions Recorded Confirmed Escitalopram [Lexapro] 10 mg PO DAILY 01/24/18 01/24/18 - Allergies Allergies/Adverse Reactions: Allergies Allergy/AdvReac Type Severity Reaction Status Date / Time morphine AdvReac Emesis Verified 03/26/18 15:56 Review of Systems - Constitutional Constitutional: denies: Fever, Chills, Weight gain, Weight loss - Cardiovascular Cariovascular: denies: Chest pain - Respiratory Respiratory: denies: Cough, Sputum production, Wheezing - Gastrointestinal Gastrointestinal: reports: Abdominal pain, Diarrhea (has 1-2 loose stools/day since starting lexapro), Nausea, Vomiting. denies: Constipation, Change in bowel habits, Rectal bleeding, Black stools, Bloody stools, Wilber blood emesis, Coffee grounds emesis - Genitourinary Genitourinary: denies: Dysuria, Hematuria - Psychiatric Psychiatric: reports: Anxiety - Hematologic/Lymphatic Hematologic/Lymphatic: denies: Blood clots, Bleeding tendencies - All Other Systems All Other Systems: reports: Reviewed and negative Exam - Vital Signs Reviewed Vital Signs: Yes Vital Signs: Vital Signs x48h Temp Pulse Resp BP Pulse Ox 03/27/18 00:28 36.6 C 53 L 16 97/53 L 96 03/26/18 22:00 36.6 C 68 18 118/71 98 03/26/18 18:45 60 18 109/63 100 - Physical Exam General Appearance: positive: Alert, Mild distress Eyes Bilateral: positive: Normal inspection, Conjunctivae nml, No scleral icterus ENT: positive: ENT inspection nml, Pharynx nml, No signs of dehydration Neck: positive: Nml inspection, No JVD, Trachea midline. negative: Lymphadenopathy (R), Lymphadenopathy (L) Respiratory: positive: Chest non-tender, No respiratory distress, Breath sounds nml. negative: Wheezes, Rales, Rhonchi Cardiovascular: positive: Regular rate & rhythm, No murmur, No gallop Peripheral Pulses: positive: 2+ Abdomen: positive: Nml bowel sounds, Tenderness (RLQ with localized guarding/rebound; no generalized tenderness), Guarding, Rebound, Mass (small, tender reducible umbilical mass). negative: Hepatomegaly, Splenomegaly Back: negative: CVA tenderness (R), CVA tenderness (L) Skin: positive: Color nml, No rash, Warm Extremities: positive: Non-tender, Nml appearance, No pedal edema. negative: Calf tenderness Neurologic/Psychiatric: positive: Oriented x3 Conclusion/Plan - Diagnosis Diagnosis: 1. acute appendicitis; no evidence of perforation at present. 2. umbilical hernia, symptomatic, small. 3. cholelithiasis, asymptomatic. 4. left ovarian cyst, asymptomatic. 5. obesity, class 2 - Plan Plan: To OR for lap appy, repair of umbilical hernia later today. PAR conference with pt and consent obtained. Observe cholelithiasis and lap chika if/when becomes sx; low fat diet. - Lab Results Lab results reviewed: Yes Fish Bones: 03/26/18 16:45 03/26/18 16:45 Other Lab Results: lfts, lipase, urine preg test all neg - Diagnostic Imaging Results Diagnostic Imaging Results: positive: Final report reviewed, Read independently Diagnostic Imaging Results Comments: see HPI
[2018-03-27] MEDS ORDERED: HYDROmorphone 1 MG/ML CARPUJECT IVP STA (01:45)
[2018-03-27] MEDS ORDERED: SODIUM CHLORIDE 0.9% 1,000 ML IV ONE (01:48)
[2018-03-27] MEDS ORDERED: ONDANSETRON 4 MG/2 ML VIAL IVP PRN ×2 (05:07→14:49)
[2018-03-27] MEDS: HYDROmorphone 1 MG/ML CARPUJECT IVP PRN ×2 (05:20→11:12)
[2018-03-27] MEDS: PIPERACILLIN/TAZOBACTAM 3.375 GM in SODIUM CHLORIDE 0.9% MINIBAG 100 ML IV SCH ×2 (06:00→11:16)
--- NOTE | 2018-03-27 07:39 | ANESTHESIA ---
Pre-Anesthesia VS, & Labs - Diagnosis Diagnosis 1. acute appendicitis; no evidence of perforation at present. 2. umbilical hernia, symptomatic, small. 3. cholelithiasis, asymptomatic 4. left ovarian cyst, asymptomatic 5. obesity, class 2 - Procedure Lap appy Vital Signs: Temp Pulse Resp BP Pulse Ox 36.6 C 59 L 16 105/60 94 03/27/18 00:28 03/27/18 06:12 03/27/18 06:12 03/27/18 06:12 03/27/18 06:12 Height 5 ft 6 in Weight (kg) 99.79 kg Body Mass Index 35.5 - NPO >8 hours - Is Patient ?: No - Lab Results Current Lab Results: Laboratory Tests 03/26/18 16:45: Sodium 135, Potassium 3.6, Chloride 102, Carbon Dioxide 26, Anion Gap 7.0, BUN 15, Creatinine 0.9, Estimated GFR (MDRD) 74 L, Glucose 95, Calcium 8.5, Total Bilirubin 0.5, AST 17, ALT 20, Alkaline Phosphatase 56, Total Protein 7.8, Albumin 4.0, Globulin 3.8, Albumin/Globulin Ratio 1.1, Lipase 28 03/26/18 16:45: WBC 8.4, RBC 4.66, Hgb 13.2, Hct 40.6, MCV 87.2, MCH 28.3, MCHC 32.5, RDW 14.8, Plt Count 207, MPV 9.0, Neut # (Auto) 5.8, Lymph # (Auto) 1.4 L, Tucker # (Auto) 0.6, Eos # (Auto) 0.4, Baso # (Auto) 0.1, Absolute Nucleated RBC 0.00, Nucleated RBC % 0.0 Fish Bones: 03/26/18 16:45 03/26/18 16:45 Home Medications and Allergies Active Medications Hydromorphone HCl (Dilaudid Inj Carp) 1 mg IVP Q2H PRN PRN Reason: PAIN Last Admin: 03/27/18 05:20 Dose: 1 mg Piperacillin Sod/Tazobactam (Sod 3.375 gm/ Sodium Chloride) 100 mls @ 200 mls/hr IV Q6H ABIODUN Last Infusion: 03/27/18 06:31 Dose: Infused Ondansetron HCl (Zofran Inj) 4 mg IVP Q6HR PRN PRN Reason: Nausea / Vomiting Last Admin: 03/27/18 05:19 Dose: 4 mg Escitalopram [Lexapro] 10 mg PO DAILY 01/24/18 Allergies/Adverse Reactions: Allergies Allergy/AdvReac Type Severity Reaction Status Date / Time morphine AdvReac Emesis Verified 03/26/18 15:56 Anes History & Medical History - Anesthetic History Anesthesia Complications: reports: No previous complications, Other-see comment (Slow wakeup) Family history of Anesthesia Complications: Denies Family history of Malignant Hyperthermia: Denies - Medical History Cardiovascular: reports: None Pulmonary: reports: None Gastrointestinal: reports: None Urinary: reports: None Neuro: reports: None Musculoskeletal: reports: None Endocrine/Autoimmune: reports: None Blood Disorders: reports: None Skin: reports: None Smoking Status: Current every day smoker Psychosocial: reports: No issues indicated - Surgical History Eyes Ears Nose Throat (EENT): Tonsil/Adenoidectomy Gynecologic: section (x3), Endometrial ablation (01/2018), Tubal ligation Exam General: Alert Dental: WNL Mouth Opening: Greater than 4 Fingerbreadths Neck Mobility: Normal Mallampati classification: II Respiratory: Lungs clear Cardiovascular: Regular rate Mental/Cognitive Status: Alert/Oriented X3 Cognitive Status: Within normal limits Plan Anesthesia Type: General Consent for Procedure(s) Verified and Reviewed: Yes Code Status: Attempt Resuscitation ASA classification: 2-Mild systemic disease Is this case an emergency?: Yes
[2018-03-27] MEDS ORDERED: BUPIVACAINE 0.5%-EPI 1:200000 PF 30 ML VIAL ONE (08:12)
[2018-03-27] MEDS ORDERED: KETOROLAC 30 MG/ML VIAL IVP PRN (09:11)
[2018-03-27] MEDS ORDERED: LACTATED RINGERS 1,000 ML IV SCH ×2 (09:30→10:00)
[2018-03-27] MEDS ORDERED: BUPIVACAINE 0.5% PF 30 ML VIAL ONE (12:32)
[2018-03-27] MEDS ORDERED: LACTATED RINGERS 1,000 ML IV ONE ×3 (13:11→15:10)
[2018-03-27] MEDS ORDERED: BUPIVACAINE 0.5% PF 30 ML VIAL INFIL ONE (13:40)
[2018-03-27] MEDS ORDERED: MIDAZOLAM 2 MG/2 ML VIAL IVP ONE (13:45)
[2018-03-27] MEDS ORDERED: DEXAMETHASONE 4 MG/ML VIAL IVP ONE (13:45)
[2018-03-27] MEDS ORDERED: SUCCINYLCHOLINE 200 MG/10 ML VIAL IVP ONE (13:45)
[2018-03-27] MEDS ORDERED: KETOROLAC 30 MG/ML VIAL IVP ONE (13:45)
[2018-03-27] MEDS ORDERED: NEOSTIGMINE 1 MG/1 ML 10 ML MDV IVP ONE (13:45)
[2018-03-27] MEDS ORDERED: PROPOFOL 200 MG/20 ML VIAL IVP ONE (13:45)
[2018-03-27] MEDS ORDERED: GLYCOPYRROLATE 1 MG/5 ML VIAL IVP ONE (13:45)
[2018-03-27] MEDS ORDERED: LIDOCAINE-MPF 2% 5 ML VIAL IM ONE (13:45)
[2018-03-27] MEDS ORDERED: ONDANSETRON 4 MG/2 ML VIAL IVP ONE (13:45)
[2018-03-27] MEDS ORDERED: ePHEDrine 50 MG/ML VIAL IVP ONE (13:45)
[2018-03-27] MEDS ORDERED: ROCURONIUM 50 MG/5 ML VIAL IVP ONE (13:45)
[2018-03-27] MEDS ORDERED: fentaNYL 250 MCG/5 ML VIAL IVP ONE (13:45)
[2018-03-27] MEDS ORDERED: HYDROmorphone 0.5 MG/0.5 ML SYRINGE IVP PRN (14:49)
[2018-03-27] MEDS ORDERED: HYDROcod/ACETAM 5/325 MG TABLET PO PRN (14:49)
--- NOTE | 2018-03-27 14:54 | OPERATIVE REPORT ---
Operative Report - General Planned Procedure: Laparoscopic appendectomy and umbilical herniorrhaphy Pre-Op Diagnosis: Appendicitis and umbilical hernia Procedure Performed: Laparoscopic appendectomy and umbilical herniorrhaphy (done without mesh due to appendicitis) Post Op Diagnosis: Same - Procedure Note Primary Surgeon: Markus Jarrett MD Anesthesia Provider: Dennis Lynch CRNA Anesthesia Technique: General ET tube, Local (30 mL of half percent Marcaine) IV Fluids (mL): 1,100 Estimated Blood Loss (mL): 5 Drain/Tube Type: Other (None.) Complications: None. - Other Other Information/Narrative: OPERATIVE DESCRIPTION/REPORT: After verbal and written informed consent was obtained detailing the risks of infection, bleeding requiring transfusion with its risks, and , and after I met with the patient confirming the surgery and the site of the surgery, the patient was brought to the operative suite and placed supine on the operating table. Great care was taken to avoid pressure points to prevent pressure necrosis or nerve injury. Monitoring devices were applied along with TEDs and pneumatic compressive stockings (to prevent DVT). The patient received preoperative antibiotics for surgical prophylaxis. Dennis Lynch CRNA sedated and anesthetized the patient for the entire procedure. The patient was prepped and draped in the usual sterile manner. With the patient draped my initials were clearly visible. A "time in" then confirmed that the patient was identified with 3 identifiers (name, date and medical record number), the history and physical was in the chart, the signed consent confirming the procedure was in the chart, the patient was in the correct position, the aforementioned prophylactic measures were in place or given, we had the correct personnel and equipment to complete the procedure and that anesthesia, surgery and nursing were given an opportunity to express any concerns. With the agreement of everyone in the room, we proceeded with the operation. A 2 cm incision umbilical incition was made and dissection down to the umbilical hernia sac in a blunt and sharp manner. The fascia was then cleared of subcutaneous tissue using a tonsil clamp and Bovie electrocautery for 1.5 cm from the umbilical defect. The umbilical hernia sac was excised using Bovie electrocautery and a 12 mm blunt tipped balloon tipped Kathia port was placed into the abdomen and the balloon inflated to keep it in place. The pneumoperitoneum was then established using carbon dioxide insufflation to a steady state pressure of 15 mmHg. Two additional 5 mm ports were placed in the midline above and below the umbilicus. The patient was then rotated slightly to their left and slightly head down (Trendelenberg). A small adhesion was photographed and cut. The appendix was clearly identified and noted to be thickened and clearly consistent with acute appendicitis. The end of the appendix was grasped with a Prestige grasper and lifted anteriorly thus revealing the appendiceal mesentery. The mesentery was taken using sequential application of the Ligasure until the base of the appendix was visualized without any adherent tissue. The base of the appendix was then stapled and transected using a laparoscopic vascular stapler. Visualization of the staple line revealed absolutely no bleeding or leak of bowel contents. Photographs were taken. The appendix was then place into an endopouch for the remainder of the case. The patient was then rotated to lie flat. The fascia and skin were then injected with the 30 cc of % marcaine for pain control. The insufflation was released and the ports removed. With the removal of the umbilical port the Endopouch containing the appendix was also removed. The fascial defect was then approximated using 0-Vicryl suture in a simple interrupted manner taking care to bury the knots this repairing the umbilical hernia. The skin incisions were approximated with 4-0 Monocryl in a subcuticular fashion. The surgical prep was removed, the skin was prepped with benzoin and steristrips were applied. A dressing was applied. At this point a time out was performed that confirmed that all the counts were correct, the procedure that was performed, the blood loss, the urine output, the IV fluids administered, and the patients condition. Having tolerated the procedure well, the patient was subsequently extubated and taken to recovery room in good and stable condition. [employer] disclaimer: This document was created in part using voice recognition technology. Because of the inherent limitations of the system ([employer]'s [employer] Dictate user manual states that the licensee understands that speech recognition is a statistical process and that recognition errors are inherent in the process), occasional same sounding word substitutions and grammatical errors do occur and persist despite proofreading. Please read this document for context.
[2018-03-27] MEDS ORDERED: ONDANSETRON 4 MG/2 ML VIAL ONE (15:17)
[2018-03-27] MEDS: fentaNYL 100 MCG/2 ML VIAL ONE ×2 (15:34→15:43)
[2018-03-27] MEDS ORDERED: ACETAMINOPHEN 1,000 MG/100 ML 100 ML IV ONE (15:35)
[2018-03-27] MEDS ORDERED: SCOPOLAMINE PATCH TOP ONE (16:31)
[2018-03-27 16:47] VITALS: BP 127/76
== END 2018-03-27 00:31 | disposition home or self-care (01) ==
LOC: ED 15:52 → SDS 03-27 00:30
PROVIDERS: ATTEND Surgery
PROC: 0DTJ4ZZ Resection of Appendix, Percutaneous Endoscopic Approach (ICD-10-PCS; principal; 2018-03-26)
DX: K35.80 Unspecified acute appendicitis (principal); K42.9 Umbilical hernia without obstruction or gangrene; K80.20 Calculus of gallbladder without cholecystitis without obstruction; N83.202 Unspecified ovarian cyst, left side; E66.9 Obesity, unspecified; Z68.35 Body mass index [BMI] 35.0-35.9, adult; F17.210 Nicotine dependence, cigarettes, uncomplicated; F41.9 Anxiety disorder, unspecified
CPT/HCPCS: 36415; 44970; 74177; 76830; 76856; 80053; 81001; 81025; 83690; 85025; 93976; 96365; 96366; 96375; 96376; 99284; J0131; J0330; J1170; J3010; J3490; J7120; Q0162; Q9967; 81003; 87086; 99285

== ENCOUNTER 2018-09-17 08:00 | Outpatient (CLI) | payer MEDICAID ==
[2018-09-17 19:50] LABS: FOLLICLE STIMULATING HORMONE 9.85 mIU/mL
[2018-09-17 19:51] LABS: LUTEINIZING HORMONE 4.29 mIU/mL
[2018-09-18 07:37] LABS: ESTRADIOL 72 pg/mL
[2018-09-19 16:10] LABS: DHEA SULFATE 435 mcg/dL (23-266)
== END 2018-09-18 23:59 | disposition home or self-care (01) ==
LOC: LAB.N 08:00
PROVIDERS: ATTEND Obstetrics & Gynecology
DX: L68.0 Hirsutism (principal); Z87.42 Personal history of other diseases of the female genital tract
CPT/HCPCS: 36415; 81599; 82627; 82670; 83001; 83002; 84402

== ENCOUNTER 2018-11-13 15:37 | Outpatient (CLI) | payer MEDICAID ==
[2018-11-13 15:48] LABS: BASOPHILS # (AUTO) 0.1 10^3/uL (0.0-0.1); BASOPHILS % (AUTO) 0.6 %; EOSINOPHILS # (AUTO) 0.8 10^3/uL (0.0-0.7); EOSINOPHILS % (AUTO) 9.8 %; HGB - HEMOGLOBIN 14.1 g/dL (12.0-16.0); LYMPHOCYTES # (AUTO) 2.1 10^3/uL (1.5-3.5); MEAN CORPUSCULAR HEMOGLOBIN 29.7 pg (27.0-31.0); MEAN CORPUSCULAR HGB CONC 32.5 g/dL (32.0-36.0); MEAN CORPUSCULAR VOLUME 91.6 fL (81.0-99.0); MEAN PLATELET VOLUME 10.6 fL (7.9-10.8); MONOCYTES # (AUTO) 0.7 10^3/uL (0.0-1.0); MONOCYTES % (AUTO) 8.6 %; NEUTROPHILS # (AUTO) 4.6 10^3/uL (1.5-6.6); NEUTROPHILS % (AUTO) 55.5 %; PLT - PLATELET COUNT 277 10^3/uL (130-450); RED BLOOD COUNT 4.74 10^6/uL (4.20-5.40); WHITE BLOOD COUNT 8.3 x10^3/uL (4.8-10.8)
[2018-11-13 16:00] LABS: ALBUMIN 4.4 g/dL (3.2-5.5); ALBUMIN/GLOBULIN RATIO 1.3 (1.0-2.2); BILIRUBIN,TOTAL 0.4 mg/dL (0.2-1.0); CALCIUM 9.1 mg/dL (8.5-10.3); TOTAL PROTEIN 7.7 g/dL (6.7-8.2)
== END 2018-11-13 15:38 | disposition home or self-care (01) ==
LOC: LAB 15:37
PROVIDERS: ATTEND Obstetrics & Gynecology
DX: Z01.812 Encounter for preprocedural laboratory examination (principal); N94.6 Dysmenorrhea, unspecified
CPT/HCPCS: 36415; 80053; 85025; 86850; 86900; 86901

== ENCOUNTER 2018-11-14 11:46 | Day surgery (SDC) | payer MEDICAID ==
[~2018-11-14 11:46] MED LIST: CEFAZOLIN SODIUM IN 0.9 % NACL 2 GM/100 ML BAG IV ONE
[2018-11-14] MEDS ORDERED: ONDANSETRON 4 MG/2 ML VIAL IVP ONE (11:47)
[2018-11-14] MEDS ORDERED: LIDOCAINE-MPF 2% 5 ML VIAL IM ONE (11:47)
[2018-11-14] MEDS ORDERED: PROPOFOL 200 MG/20 ML VIAL IVP ONE (11:47)
[2018-11-14] MEDS ORDERED: GLYCOPYRROLATE 1 MG/5 ML VIAL IVP ONE (11:47)
[2018-11-14] MEDS ORDERED: fentaNYL 250 MCG/5 ML VIAL IVP ONE (11:47)
[2018-11-14] MEDS ORDERED: ACETAMINOPHEN 1,000 MG/100 ML 100 ML IV ONE (11:47)
[2018-11-14] MEDS ORDERED: DEXAMETHASONE 4 MG/ML VIAL IVP ONE (11:47)
[2018-11-14] MEDS ORDERED: KETOROLAC 30 MG/ML VIAL IVP ONE (11:47)
[2018-11-14] MEDS ORDERED: ROCURONIUM 50 MG/5 ML VIAL IVP ONE (11:47)
[2018-11-14] MEDS ORDERED: MIDAZOLAM 2 MG/2 ML VIAL IVP ONE (11:47)
[2018-11-14] MEDS ORDERED: LACTATED RINGERS 1,000 ML IV ONE ×2 (12:49→16:32)
--- NOTE | 2018-11-14 13:01 | ANESTHESIA ---
Pre-Anesthesia VS, & Labs - Diagnosis dysmenorrhea, adenomyosis - Procedure total lap hysterectomy w/B salpingectomy Vital Signs: Temp Pulse Resp BP Pulse Ox 36.4 C L 80 18 123/74 98 11/14/18 12:15 11/14/18 12:15 11/14/18 12:15 11/14/18 12:15 11/14/18 12:15 Height 5 ft 6 in Weight (kg) 106.4 kg Body Mass Index 35.5 - NPO >8 hours - Is Patient ?: No - Lab Results Lab results reviewed: Yes Home Medications and Allergies Home Medications: Ambulatory Orders diphenhydrAMINE [Benadryl] 50 - 100 mg PO Q4-6H PRN 11/13/18 diphenhydrAMINE [Benadryl] 50 - 100 mg PO Q4-6H PRN 11/13/18 Allergies/Adverse Reactions: Allergies Allergy/AdvReac Type Severity Reaction Status Date / Time morphine AdvReac Emesis Verified 03/26/18 15:56 Anes History & Medical History - Anesthetic History Anesthesia Complications: reports: No previous complications, Post-Operative Nausea/Vomiting (scope patch ordered) Family history of Anesthesia Complications: Denies Family history of Malignant Hyperthermia: Denies - Medical History Cardiovascular: reports: None Pulmonary: reports: None Gastrointestinal: reports: None Urinary: reports: None Neuro: reports: None Musculoskeletal: reports: None Endocrine/Autoimmune: reports: None Blood Disorders: reports: None Skin: reports: None Smoking Status: Current every day smoker Psychosocial: reports: Cannabis (edibles for anxiety) - Surgical History General: Appendectomy Eyes Ears Nose Throat (EENT): Tonsil/Adenoidectomy Gynecologic: section, Endometrial ablation, Tubal ligation Exam General: Alert, Oriented x3, Cooperative Dental: WNL Mouth Openin Fingerbreadth Neck Mobility: Normal Mallampati classification: II Thyromental Distance: 4-6 cm Respiratory: Lungs clear, Normal breath sounds, No respiratory distress Cardiovascular: Regular rate Neurological: Normal speech Mental/Cognitive Status: Alert/Oriented X3, Normal for patient Cognitive Status: Within normal limits Plan Anesthesia Type: General Consent for Procedure(s) Verified and Reviewed: Yes Code Status: Attempt Resuscitation ASA classification: 2-Mild systemic disease Is this case an emergency?: No
[2018-11-14] MEDS ORDERED: SCOPOLAMINE PATCH TOP ONE (13:02)
[2018-11-14] MEDS ORDERED: BUPIVACAINE 0.25%-EPI 1:200000 PF 30 ML VIAL ONE (14:12)
[2018-11-14] MEDS ORDERED: METHYLENE BLUE 0.5% 50 MG/10 ML AMPULE ONE (17:37)
[2018-11-14] MEDS ORDERED: HYDROmorphone 0.5 MG/0.5 ML SYRINGE ONE ×2 (18:40→19:05)
[2018-11-14] MEDS ORDERED: oxyCODONE 5 MG TABLET PO PRN (18:54)
[2018-11-14] MEDS ORDERED: ONDANSETRON 4 MG/2 ML VIAL IVP PRN (18:54)
[2018-11-14] MEDS ORDERED: LORazepam 2 MG/ML VIAL IVP PRN (18:54)
--- NOTE | 2018-11-14 18:59 | OPERATIVE REPORT ---
Operative Report - General Procedure Date: 11/14/18 Planned Procedure: TLH BS cysto Pre-Op Diagnosis: Dysmenorrhea Procedure Performed: TLH BS cysto Post Op Diagnosis: SAME - Procedure Note Primary Surgeon: Harley Perez MD Secondary Surgeon: Haley Tony MD Anesthesia Provider: Jhonathan Bradford CRNA Anesthesia Technique: General ET tube Pathology: Uterus with Tubes IV Fluids (mL): 1,000 Estimated Blood Loss (mL): 100 Urine Output (mL): 300 Complications: None - Other Other Information/Narrative: Dictation # [id number]
[2018-11-14] MEDS ORDERED: ACETAMINOPHEN 500 MG TABLET PO SCH (19:00)
[2018-11-14] MEDS ORDERED: DOCUSATE SODIUM 100 MG CAPSULE PO SCH (21:00)
[2018-11-14] MEDS: HYDROmorphone 0.5 MG/0.5 ML SYRINGE IVP PRN ×2 (21:26→23:53)
[2018-11-14] MEDS: LACTATED RINGERS 1,000 ML IV SCH (21:27)
[2018-11-14] MEDS ORDERED: SODIUM CHLORIDE FLUSH 0.9% 10 ML SYRINGE ONE (21:32)
--- NOTE | 2018-11-14 21:55 | OPERATIVE REPORT ---
DATE OF SERVICE: 11/14/2018 Physician: Harley Perez MD PREOPERATIVE DIAGNOSIS: Dysmenorrhea. POSTOPERATIVE DIAGNOSIS: Dysmenorrhea. PROCEDURE PERFORMED: Total laparoscopic hysterectomy with bilateral salpingectomy, lysis of adhesions, and cystoscopy. SURGEON: Harley Perez MD ASSESSMENT MANAGER: Yamel Tony MD ANESTHESIA: Jhonathan Bradford CRNA ANESTHETIC: General via endotracheal tube. IV FLUIDS: 1000 mL ESTIMATED BLOOD LOSS: 100 mL URINE OUTPUT: 300 mL FINDINGS: Upon entering the abdominal cavity, there was evidence of an omental adhesion to the periumbilical region. She had previously had an umbilical hernia repaired and this was compatible with postop adhesions. The uterus, tubes and ovaries all appeared within normal limits. She had previously had a tubal. The ovaries were without disease. The cul-de-sac was free of any pelvic endometriosis. The appendix was nonvisualized. PROCEDURE: Following adequate endotracheal anesthesia, [facility] At this point, pelvic examination under anesthesia was performed. The exam was limited secondary to abdominal wall thickness. She was then prepped and draped in the usual fashion. A speculum was placed in the vagina. The cervix was visualized, grasped with a single-tooth tenaculum. The cervix was then dilated up to a size 6 mm. This was somewhat difficult to proceed beyond this. She was sounded to 7 cm. A medium VCare uterine manipulator was then placed under direct visualization. Care was taken to try and place this as close to the fornices as possible to minimize the risk of vaginal shortening. At this point, the mobile health vehicle operator's gloves were changed. Following local anesthesia with 0.25% Marcaine, a left upper quadrant incision was made, and a trocar was placed under direct visualization. There was no evidence of any injury at site of insertion. Two additional ports were placed, both in the left and right lower quadrants following local anesthesia with 0.25% Marcaine and a skin incision with a #15 blade. At this point, utilizing a LigaSure, the omental adhesions were then taken down from the anterior abdominal wall. There was no evidence of any bleeding from both the anterior wall as well as the omentum. The pelvis was inspected in its entirety. The right fallopian tube was then grasped and, utilizing the LigaSure, it was cauterized and transected all the way to the cornu. This was then removed and brought out through the 10 mm port, which had been placed in the right lower quadrant. The round ligament was cauterized and transected with the LigaSure, then the utero-ovarian ligament also. The broad ligament was cauterized and transected. The ureter was inspected and found to fall out of the way of the operative field. The broad ligament was , and the anterior leaf was cauterized, transected, and brought across the lower uterine segment. The posterior leaf was then likewise cauterized and transected. The peritoneum was then pushed free from the cervix. There was some difficulty with some oozing on the left-hand side, which was treated with electrocautery. Dr. Tony then on the left-hand side grasped the tube, and the mesosalpinx was cauterized and transected with the LigaSure. This was brought all the way to the cornu, and then the fallopian tube was brought through the 10 mm right lower quadrant port. The utero-ovarian ligament cauterized, transected, as well as the round ligament. The broad ligament was then cauterized, transected, and then divided in two, and the anterior leaf was brought down to the previously opened bladder flap area. The posterior leaf was likewise cauterized and transected. This was carried all the way down to below the internal os of the cervix. Then, utilizing the LigaSure, the bladder was dissected free from the lower uterine segment all the way down to the VCare, which was palpated. Then, both left and right sides were cauterized and transected with the LigaSure all the way down to VCare cup. The Harmonic scalpel was then used to enter the vagina anteriorly, and the cervix was amputated from the upper vagina going counterclockwise to the posterior side. Then, utilizing the LigaSure the posterior vagina was then cauterized and transected. The Harmonic scalpel was then used on the left hand side by Dr. Tony to meet with the previously cauterized and transected posterior vagina. The uterus was then brought down into the vagina to obstruct the outflow of carbon dioxide, and the incision at the apex of the vagina was then closed utilizing V-Loc suture internally. The apex of the vagina was closed in its entirety. Some oozing and bleeding was occurring on the left-hand side. This was treated with additional V-Loc, and there was no evidence of any further bleeding. Because of the proximity of the ureter on that side, it was decided to do the cystoscopy first. This was performed and there was evidence of good robust flow of urine through both ureteral orifices. At this point, the right lower quadrant incision, which was 10 mm, was closed utilizing the Danny- Marcelle with evidence of good closure. The CO2 was then allowed to escape, and then all 3 trocar sites were closed utilizing 4-0 Monocryl subcuticular. The patient tolerated the procedure well and was taken to recovery in stable condition. Sponge and needle counts were correct. TD: 11/14/2018 19:09 ALO
[2018-11-14] MEDS: ACETAMINOPHEN 500 MG TABLET PO SCH (23:54)
[2018-11-15] MEDS: HYDROmorphone 0.5 MG/0.5 ML SYRINGE IVP PRN (02:12)
[2018-11-15] MEDS: LACTATED RINGERS 1,000 ML IV SCH (06:49)
[2018-11-15 07:42] VITALS: BP 100/52
[2018-11-15] MEDS: ACETAMINOPHEN 500 MG TABLET PO SCH (08:12)
== END 2018-11-15 08:14 | disposition home or self-care (01) ==
LOC: SDS 11:46 → MS2 18:54 → SDS 11-15 08:14
PROVIDERS: ATTEND Obstetrics & Gynecology
PROC: 0UT74ZZ Resection of Bilateral Fallopian Tubes, Percutaneous Endoscopic Approach (ICD-10-PCS; 2018-11-14)
PROC: 0UT94ZZ Resection of Uterus, Percutaneous Endoscopic Approach (ICD-10-PCS; principal; 2018-11-14 13:00)
DX: N94.6 Dysmenorrhea, unspecified (principal); N87.9 Dysplasia of cervix uteri, unspecified; N72 Inflammatory disease of cervix uteri; K66.0 Peritoneal adhesions (postprocedural) (postinfection); F17.200 Nicotine dependence, unspecified, uncomplicated; Z98.51 Tubal ligation status
CPT/HCPCS: 58571; A9270; J0131; J0690; J1170; J3010; J3490; J7120